=== PATIENT | female | born 1930 | race Caucasian/White ===

== ENCOUNTER 2016-12-05 17:22 | Emergency (ER) | payer MEDICARE, OTHER ==
--- NOTE | ~2016-12-05 | CR63 ---
[facility] A Service of [facility] RADIOLOGY TEXT RESULTS PATIENT: SAMUEL STEEL LOCATION: [facility] : 31 UNIT #: [id number] AGE: [address]: MALLORY Gurerero SEX: F ORDER DR: [id number] [facility] [address] [place], [place] [address] [id number] MR#: [id number] Acc #: [id number] NAME: SAMUEL STEEL : 1930 SEX: F STUDY DATE/TIME: 12/05/2016 15:33 UNIT: BENNIE ROOM: STUDY DESCRIPTION: CR Chest 2 View Attending Physician: Yolanda Doctor Ordering Physician: Ed Jose Alvarez M.D. Primary Care Physician: Jackelyn Caro M.D. MEDICAL IMAGING REPORT This report is preliminary unless electronic signature is present EXAM Chest PA and lateral HISTORY 3-day history of cough and shortness of breath. PA and lateral views of the chest are obtained and directly compared to the patient's studies of December 03, 2016. FINDINGS Cardiac size is stable. Vascular pattern of the chest is normal. Lungs appear hyperinflated but clear. No acute process is seen. CONCLUSION Stable chest. No change from prior radiographs Dictated by... Jose Mralow M.D. THIS IS AN ELECTRONICALLY VERIFIED REPORT Jose Marlow M.D. at 12/06/2016 10:35 AM TOPHER/ally TD: 12/05/2016 20:26 JOB #: [id number] MEDICAL IMAGING REPORT Page 1 of 1 COPY
[~2016-12-05 17:22] MED LIST: AZITHROMYCIN250 MG PO; BIMATOPROST; CALTRATE PLUS T1 TAB PO; FLEXERIL PO; GENTEAL SEVERE10 GM OU; LISINOPRIL PO; LUMIGAN OU; NORVASC PO; OMEPRAZOLE20 M1 PO; PRILOSEC PO; PROTONIX PO; REGLAN PO; TIMOPTIC 0.5% OP5 M1 OU; TIMOPTIC2.5 ML OU; XALATAN OP; ZESTRIL40 MG PO; ZOFRANODT PO
[2016-12-06] MEDS ORDERED: LUMIGAN2.5 ML OD (15:56)
[2016-12-06] MEDS ORDERED: PEPCID AC20 M2 PO (15:56)
[2016-12-06] MEDS ORDERED: TIMOPTIC5 ML OU (15:56)
[2016-12-06] MEDS ORDERED: ZESTRIL40 MG PO (15:57)
[2016-12-06] MEDS ORDERED: GENTEAL15 ML OU (15:57)
[2016-12-06] MEDS ORDERED: ANIMAL SHAPES1 EAC2 PO (15:57)
[2016-12-06] MEDS ORDERED: AMLODIPINE BESYL5 MG PO (15:57)
== END 2016-12-05 18:00 | disposition left against medical advice (07) ==
LOC: CED 17:22
DX: Z53.21 Procedure and treatment not carried out due to patient leaving prior to being seen by health care provider (principal)
CPT/HCPCS: 71020

== ENCOUNTER 2016-12-06 16:58 | Observation (INO) | payer MEDICARE, OTHER ==
--- NOTE | ~2016-12-06 | HP ---
Unit #: [id number] #: [id number] Patient: SAMUEL STEEL [id number] [address] [address] [id number] I MR#: [id number] NAME: SAMUEL STEEL ROOM: 558 Age: 86 Sex: F Admission Date: 12/06/2016 : 1930 Attending Physician: Nadege Mcqueen M.D. Primary Care Physician: Jackelyn Caro M.D. HISTORY AND PHYSICAL CHIEF COMPLAINT Bronchitis with bronchospasm and SIADH with chronic hyponatremia. HISTORY This cayetano, 86-year-old female with GERD, hypertension, and cognitive impairment was transferred from [facility] emergency department for bronchitis. Patient herself is a somewhat poor historian and supplements history. The patient became ill two weeks ago with cough and increasing shortness of breath. Denies any other symptoms. She presented to [facility] emergency department where her chest x-ray was negative and her blood pressure was elevated. Sodium 123, but she is chronically hyponatremic. At [facility] ER, she was started on normal saline at 250 mL an hour and given 125 mg of Solu-Medrol along with DuoNeb and Tussionex. She was then 50 mg of Lopressor for an elevated blood pressure. States that she is feeling improved at this time. PAST MEDICAL HISTORY 1. SIADH. 2. GERD. 3. Community-acquired pneumonia requiring admission 11/2014. Patient had a sodium of 115 at that time and required Samsca. 4. Hypertension. 5. Cognitive impairment. 6. Schatzki ring, status post dilation. 7. Cataract extraction. ALLERGIES No known drug allergies. HOME MEDICATIONS 1. Pepcid AC 20 mg daily. 2. Timoptic. 3. Lumigan. 4. GenTeal eyedrops. 5. Norvasc 5 mg daily. 6. Multivitamin daily. 7. Lisinopril 40 mg daily. FAMILY HISTORY CAD. SOCIAL HISTORY Unit #: [id number] #: [id number] Patient: SAMUEL STEEL The patient is originally from [place] and was living with her [place] in the [place]. She is a lifelong nonsmoker. Drinks a hot toddy each evening to help her sleep. REVIEW OF SYSTEMS Difficult to obtain due to patient being pleasantly confused. PHYSICAL EXAMINATION GENERAL APPEARANCE: Pleasantly confused, 86-year-old female currently in no acute distress. VITAL SIGNS: Pulse currently 75, O2 saturation 95% on room air, blood pressure 184/89, and temperature 97.4. HEENT: Eyes: PERRLA. Extraocular muscles are intact. Pharynx: Benign. NECK: Supple without adenopathy or thyromegaly. CHEST: Reveals expiratory wheeze bilaterally. CARDIAC: Normal S1 and S2 without murmur. ABDOMEN: Bowels sounds are present. No hepatosplenomegaly, tenderness, or masses. EXTREMITIES: Without C, C, or E. Pedal pulses are present. NEUROLOGIC: Patient is awake and alert. She is pleasantly confused. Her cranial nerves are intact. She has equal strength throughout. DIAGNOSTIC STUDIES LABORATORY: Admission labs: Hematocrit is 43.1. Normal white count, platelet count, and coags. SMA-12: Glucose 111 and sodium 123. Sodium is usually about 125 or so. Chloride 85. Cardiac markers are negative. IMAGING: Chest x-ray: No acute disease. CARDIOVASCULAR: EKG: Normal sinus rhythm, rate 89, and left axis deviation. ASSESSMENT 1. Bronchitis with bronchospasm, symptomatic for two weeks. 2. SIADH with chronic hyponatremia. 3. Accelerated hypertension. 4. Dementia. 5. GERD. PLANS 1. Bronchodilators, short course of steroids, and Zithromax. 2. Discontinue IV fluids and will fluid restrict the patient. Check urine sodium. 3. DVT prophylaxis. 4. Blood pressure control. Dictated by Markel Kamara/rajesh TD: 12/07/2016 06:20 JOB #: [id number] Unit #: [id number] #: [id number] Patient: SAMUEL STEEL HISTORY AND PHYSICAL Page 1 of 1 X Maggie Chambers MD HISTORY AND PHYSICAL
--- NOTE | ~2016-12-06 | CR72 ---
[facility] [place] [facility] RADIOLOGY TEXT RESULTS PATIENT: SAMUEL STEEL LOCATION: [facility] : 31 UNIT #: [id number] AGE: [address]: Ann-Marie Pierson MD SEX: F ORDER DR: [id number] [place] [address] [id number] I MR#: [id number] Acc #: [id number] NAME: SAMUEL STEEL : 1930 SEX: F STUDY DATE/TIME: 12/06/2016 17:10 UNIT: SEDOF ROOM: [facility] STUDY DESCRIPTION: CR Chest Single View Portable Attending Physician: Nadege Mcqueen M.D. Ordering Physician: Reji Ellington M.D. Primary Care Physician: Jackelyn Caro M.D. MEDICAL IMAGING REPORT This report is preliminary unless electronic signature is present. EXAM Portable chest, 12/06/2016 HISTORY 2-week history of shortness of air, recently seen in the emergency room first similar complaints. COMPARISON 12/05/2016 FINDINGS AP portable view of the chest demonstrates moderate lung volume satisfactory technique. No infiltrates or effusions. Heart and mediastinum unremarkable except for mild aortic atherosclerotic changes. No effusions. Osseous structures unremarkable except for bilateral AC joint arthropathy. IMPRESSION No active disease and no change from 12/05/2016. Dictated by... Herminio Zimmer M.D. THIS IS AN ELECTRONICALLY VERIFIED REPORT Herminio Zimmer M.D. at 12/07/2016 2:38 PM LESLEE/hanny TD: 12/06/2016 23:22 JOB #: [id number] [facility] A Service [facility] RADIOLOGY TEXT RESULTS PATIENT: SAMUEL STEEL LOCATION: [facility] 558 : [birth year] UNIT #: [id number] AGE: [address]: Ann-Marie Pierson MD SEX: F ORDER DR: MEDICAL IMAGING REPORT Page 1 of 1
--- NOTE | ~2016-12-06 | EKG ---
PATIENT: SAMUEL STEEL UNIT #: [id number] Ventricular Rate: 89 BPM Atrial Rate: 89 BPM P-R Interval: 128 ms QRS Duration: 70 ms Q-T Interval: 356 ms QTC Calculation(Bezet): 433 ms P Durham: 54 degrees Calculated R Durham: -41 degrees Calculated T Durham: 66 degrees Diagnosis Line: Normal sinus rhythm Diagnosis Line: Left axis deviation Diagnosis Line: Otherwise normal ECG Diagnosis Line: When compared with ECG of 22-NOV-2014 10:21, Diagnosis Line: No significant change was found Diagnosis Line: Confirmed by ADELINA ALAN MD ([id number]) on 12/10/2016 Diagnosis Line: 11:11:23 PM INTERPRETING MD: WAQAS BARRETT
--- NOTE | ~2016-12-06 | DS ---
Unit #: [id number] #: [id number] Patient: SAMUEL STEEL [id number] [address] [address] [id number] I MR#: [id number] NAME: SAMUEL STEEL ROOM: 558 Age: 86 Sex: F Admission Date: 12/06/2016 : 1930 Discharge Date: 12/07/2016 Attending Physician: Ann-Marie Pierson M.D. Primary Care Physician: Jackelyn Caro M.D. DISCHARGE SUMMARY PRIMARY CARE PROVIDER Jackelyn Caro M.D. PRINCIPAL DIAGNOSES 1. Acute on chronic hyponatremia secondary to syndrome of inappropriate secretion of antidiuretic hormone. 2. Acute bronchitis. 3. Acute bronchospasm. 4. Accelerated hypertension, now resolved. 5. Gastroesophageal reflux disease. 6. Dementia. CONSULTANTS None. PROCEDURES Chest x-ray on 12/05/2016 which was normal. CLINICAL HISTORY AND HOSPITAL COURSE Ms. Steel is a very nice 86-year-old female, brought to the emergency department by her with increasing shortness of breath and cough. Please refer to H and P for further details. In the emergency department at [facility] her chest x-ray was negative, but blood pressure was found to be elevated and she had some wheezing on exam. Sodium was also low at 123. The patient was subsequently admitted in observation for evaluation. The patient was given a small amount of IV fluids and placed on a water restriction and today sodium is normalized to a stable 128. Discussed with the patient and her of limiting her fluid intake at home. In regard to the patient's shortness of breath, again chest x-ray was negative. She remained afebrile and after a dose of steroids and some nebulizer treatments her wheezing has resolved. Plan is to discharge on a short tapering dose of steroids, albuterol inhaler, and antibiotics. She can be discharged home later today. Her blood pressure has improved on home medications. DISCHARGE CONDITION Stable. DISCHARGE STATUS Unit #: [id number] #: [id number] Patient: SAMUEL STEEL Discharged to home. DISCHARGE MEDICATIONS Albuterol inhaler 2 puffs every 6 hours p.r.n. for shortness of breath, prednisone 20 mg daily for 3 days and 10 mg daily for 3 days and discontinue, Norvasc 5 mg daily, Timoptic 2.5 mg to both eyes b.i.d., Zestril 40 mg daily, Lumigan 1 drop to both eyes b.i.d., Pepcid AC 20 mg at bedtime, daily multivitamin, azithromycin 500 mg p.o. daily for another 6 days. DISCHARGE INSTRUCTIONS The patient instructed to follow a heart healthy diet. She keep her fluid intake at approximately 1800 mL daily. She can increase her activity as tolerated. FOLLOWUP The patient will follow up with her primary care provider, Dr. Jackelyn aCro in 2 weeks. Dictated by... Ann-Marie Pierson M.D. RADHA/omaiar TD: 12/08/2016 08:15 JOB #: [id number] DISCHARGE SUMMARY Page 1 of 1 X Ann-Marie Pierson MD X DISCHARGE SUMMARY
[~2016-12-06 16:58] MED LIST changes: +AMLODIPINE BESYL5 MG PO; +ANIMAL SHAPES1 EAC2 PO; +GENTEAL15 ML OU; +LUMIGAN2.5 ML OD; +PEPCID AC20 M2 PO; +TIMOPTIC5 ML OU
[2016-12-06 17:10] LABS: BASOPHIL% 0.6 % (0-2.5); EOSINOPHIL# 0.1 X10e3 (0-0.7); EOSINOPHIL% 1.7 % (0.0-7.0); HEMATOCRIT 43.1 % (35.0-45.0); HEMOGLOBIN 14.4 gm/dL (12.0-16.0); LYMPHOCYTE# 1.4 X10e3 (1.0-3.5); LYMPHOCYTE% 19.4 % (17.0-45.0); MEAN CELL VOLUME 86.6 FL (83-96); MEAN CORPUSCULAR HEMOGLOBIN 28.8 PG (28-34); MEAN CORPUSCULAR HGB CONC 33.3 g/dL (30-36); MEAN PLATELET VOLUME 6.5 FL (6.5-11.5); MONOCYTE# 1.1 X10e3 (0-1.0); MONOCYTE% 15.6 % (3.0-12.0); NEUTROPHIL# 4.5 X10e3 (1.5-7.1); NEUTROPHIL% 62.7 % (40-75); PLATELET COUNT 241 X10e3 (140-420); RED BLOOD COUNT 4.98 X10e (3.90-5.30); RED CELL DISTRIBUTION WIDTH 12.7 % (11.0-15.5); WHITE BLOOD COUNT 7.1 X10e3 (4.0-10.5)
[2016-12-06 17:14] LABS: POC - CKMB <1.0 ng/mL (0.0-7.9)
[2016-12-06 17:15] LABS: POC - MYOGLOBIN 51.6 ng/mL (0.0-169.0); POC - TROPONIN <0.05 ng/mL (<=0.05)
[2016-12-06 17:16] LABS: DIFF IND NO
[2016-12-06 17:24] LABS: PROTHROMBIN TIME (PATIENT) 11.4 SECONDS (9.5-12.4)
[2016-12-06 17:32] LABS: PARTIAL THROMBOPLASTIN TIME 23.1 SECONDS (25.6-38.1)
[2016-12-06 17:45] LABS: ALBUMIN SERUM 4.3 g/dL (3.5-5.0); BILIRUBIN, DIRECT 0.1 mg/dL (0.0-0.2); BILIRUBIN,INDIRECT 0.5 mg/dL (0.0-0.9); BILIRUBIN,TOTAL 0.6 mg/dL (0.2-2.0); BUN/CREATININE RATIO 18.33; CREATININE SERUM 0.6 mg/dL (0.6-1.4); GLOM FILT RATE Estimated 83.1 mL/min (>60); POTASSIUM 4.2 mmol/L (3.5-5.1); PROTEIN TOTAL SERUM 7.3 g/dL (6.0-8.3)
[2016-12-06 17:50] LABS: CALCIUM SERUM 8.8 mg/dL (8.4-10.2)
[2016-12-07] MEDS ORDERED: ALBUTEROL17 GM INH (14:58)
[2016-12-07] MEDS ORDERED: ZITHROMAX500 MG PO (14:59)
[2016-12-07] MEDS ORDERED: PREDNISONE PO (15:00)
== END 2016-12-07 17:40 | disposition home or self-care (01) ==
LOC: SED 16:58 → SEDOF 19:15 → C5B 12-07 00:50
PROVIDERS: Emergency Medicine
DX: E22.2 Syndrome of inappropriate secretion of antidiuretic hormone (principal); J20.9 Acute bronchitis, unspecified; I10 Essential (primary) hypertension; K21.9 Gastro-esophageal reflux disease without esophagitis; F03.90 Unspecified dementia, unspecified severity, without behavioral disturbance, psychotic disturbance, mood disturbance, and anxiety; Z82.49 Family history of ischemic heart disease and other diseases of the circulatory system
CPT/HCPCS: 36415; 71010; 80048; 80076; 82553; 83874; 84295; 84484; 85025; 85610; 85730; 93005; 94640; 94760; 96361; 96372; 96374; 99285; G0378; J0456; J1650; J2930

== ENCOUNTER → 2016-12-17 | Outpatient (CLI) | payer MEDICARE, OTHER ==
[~2016-12-17] MED LIST changes: +ALBUTEROL17 GM INH; +PREDNISONE PO; +ZITHROMAX500 MG PO
[2016-12-17 12:15] LABS: BUN/CREATININE RATIO 21.11; CALCIUM SERUM 9.1 mg/dL (8.4-10.2); CREATININE SERUM 0.9 mg/dL (0.6-1.4); GLOM FILT RATE Estimated 58.3 mL/min (>60); POTASSIUM 4.5 mmol/L (3.5-5.1)
== END | disposition home or self-care (01) ==
LOC: CLAB 11:05
PROVIDERS: Internal Medicine Cardiovascular Disease
DX: R60.9 Edema, unspecified (principal)
CPT/HCPCS: 36415; 80048